=== PATIENT | female | born 1995 | race Caucasian/White ===

== ENCOUNTER 2020-03-17 06:43 | Emergency (ER) | payer OTHER ==
[~2020-03-17] VITALS: Ht 165.1 cm; Wt 90.4 kg
[2020-03-17] MEDS ORDERED: ACETAMINOPHEN 325 MG TAB PO ONE (07:00)
[2020-03-17] MEDS ORDERED: IBUPROFEN 600MG TAB PO ONE (07:00)
[2020-03-17 07:58] VITALS: BP 129/70
--- NOTE | 2020-03-17 08:08 | REP ---
INDICATION: right pain COMPARISON: None. TECHNIQUE: Internal rotation, external rotation, and Y view. FINDINGS: No acute fracture or dislocation. The acromioclavicular and glenohumeral joints are intact. No periarticular calcifications or degenerative changes are appreciated. Sub acromial space is normal. Surrounding soft tissues are unremarkable. IMPRESSION: Normal right shoulder radiographs. <Electronically signed by Kobe Plata > 03/17/20 [id number]
== END 2020-03-17 08:04 | disposition home or self-care (01) ==
LOC: M ED 06:43
DX: M75.51 Bursitis of right shoulder (principal)

== ENCOUNTER 2021-02-10 22:17 | Emergency (ER) | payer OTHER ==
[~2021-02-10] VITALS: Ht 165.1 cm; Wt 88.6 kg
[2021-02-10 22:17] VITALS: BP 133/77
--- OUTSIDE RECORDS SUMMARY | 2021-02-10 22:22 | CCD ---
Author Author [facility] Organization [facility] Address Unknown Phone Unavailable Care Team Providers Care Associate Professor Of Economics Name Role Phone Maring, James PA Unavailable Unavailable Maring, James PA Unavailable Unavailable Maring, James PA Unavailable Unavailable Maring, James PA Unavailable Unavailable Maring, James PA Unavailable Unavailable Maring, James PA Unavailable Unavailable Maring, James PA Unavailable Unavailable Maring, James PA Unavailable Unavailable Maring, James PA Unavailable Unavailable Maring, James PA Unavailable Unavailable Maring, James PA Unavailable Unavailable Maring, James PA Unavailable Unavailable Maring, James PA Unavailable Unavailable Maring, James PA Unavailable Unavailable Maring, James PA Unavailable Unavailable Maring, James PA Unavailable Unavailable Carlos Perez MD Unavailable Unavailable Re-disclosure Warning The records that you are about to access may contain information from federally-assisted alcohol or drug abuse programs. If such information is present, then the following federally mandated warning applies: This information has been disclosed to you from records protected by federal confidentiality rules (42 CFR part 2). The federal rules prohibit you from making any further disclosure of this information unless further disclosure is expressly permitted by the written consent of the person to whom it pertains or as otherwise permitted by 42 CFR part 2. A general authorization for the release of medical or other information is NOT sufficient for this purpose. The Federal rules restrict any use of the information to criminally investigate or prosecute any alcohol or drug abuse patient.The records that you are about to access may contain highly sensitive health information, the redisclosure of which is protected by Article 27-F of the [facility] Public Health law. If you continue you may have access to information: Regarding HIV / AIDS; Provided by facilities licensed or operated by the [facility] Office of Mental Health; or Provided by the [facility] Office for People With Developmental Disabilities. If such information is present, then the following [facility] mandated warning applies: This information has been disclosed to you from confidential records which are protected by state law. State law prohibits you from making any further disclosure of this information without the specific written consent of the person to whom it pertains, or as otherwise permitted by law. Any unauthorized further disclosure in violation of state law may result in a fine or fpc sentence or both. A general authorization for the release of medical or other information is NOT sufficient authorization for further disc losure. Allergies and Adverse Reactions Type Description Substance Reaction Status Data Source(s ) Drug allergy No Known Drug Allergies No Known Drug Allergies [facility] Family History Family Member Name Family Member Gender Family Member Status Date o f Status Description Data Source(s) Unknown Condition [facility] Encounters Encounter Providers Location Date Indications Data Source(s ) Outpatient Attender: James HU 11/12/19 06:18:50 PM EDT - 11/11/2020 06:39:01 PM EDT [facility] ([facility] ) Outpatient Attender: Alexis Perez MD 04/23/2020 04:58: 00 PM [facility] N94.89 [facility] N94.89 Outpatient Attender: Alexis Perez MD 10:57:00 AM EST - 04[facility]23[facility]ine Date Status Description Data Source(s) COVID-19 VACCINE Moderna 10/07/2020 12:00:00 AM EDT completed [facility] Vaccine Series Complete: YESThis Data wa s Submitted to [facility] Via [employer]. COVID-19 VACCINE Moderna 09/02/2020 12:00:00 AM EDT completed [facility] Vaccine Series Complete: NOThis Data was Submitted to [facility] Via [employer]. Medications Medication Brand Name Start Date Product Form Dose Route Admi nistrative Instructions Pharmacy Instructions Status Indications Reaction Description Data Source(s) Metronidazole 500 MG Oral Tablet Metronidazole (Flagyl ) 500 mg tablet Metronidazole (Flagyl) 500 mg tablet 04/23/2020 11:59:54 AM EST 500 MG active [facility] Phentermine Hydrochloride 37.5 MG Oral Capsule Phentermine 04/23/2020 11:13:30 AM EST 37.5 MG completed [facility] Insurance Providers Payer name Policy type / Coverage type Policy ID Covered democrat ID Covered democrat's relationship to garnica Policy Garnica Plan Information Family Health Plan / [id number] Self [id number] [facility] [id number] SP [id number] Problems, Conditions, and Diagnoses No Information Surgeries/Procedures No Information Results ID Date Data Source [id number] 04/25/2020 12:31:00 PM EST [facility] Name Value Range Interpretation Code Description Data Lakshmi rce(s) Supporting Document(s) Trichomonas DNA Probe NOT DETECTED NOT DETECTED [facility] Gardnerella DNA Probe NOT DETECTED NOT DETECTED [facility] Sheridan species DNA Probe NOT DETECTED NOT DETECTED [facility] THIS TEST WAS PERFORMED AT:[address] [id number] MERATI,MD ID Date Data Source [id number] 04/23/2020 11:06:00 AM EST [facility] Patient Name: Ronda Razo : 1995 Sex: F Pt Unit #: [id number] Location: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 PT STATES THAT THE LAST 2 WEEKS SHE HAS NOTICED CLEAR WHITE VAGINAL D/C THAT AT TIMES CAN SOAK HER PANTIES. SHE STATES THAT SHE IS VERY EMBARRASSED ABOUT THIS AND FEELS THAT SHE HAS A STRONG ODER. SHE DID TRY A OTC MONISTAT BUT LITTLE RELIEF. SHE HAS PAIN WITH INTERCOURSE THAT IS "INTENSE AND VERY PAINFUL" TO HER. SHE STATES THAT SHE FEELS VERY NERVOUS TO HAVE SEX WITH KNOWING THAT SHE MAY FEEL THIS PAIN. SHE HAS NO HX OF STD 'S OR ABN PAP. HER HUSBNAD HAS HAD A VASECTOMY. SHE HAS TRIED THERAPY AND STATES THE THERAPIST WAS NOT HELPFUL. SHE HAS HAD DECREASED LIBIDO NOW FOR A "LONG TIME". PT DOES HAD HX OF THYROID DISEASE IN HER FAMILY MOM AND MAT GM. SHE HAS NOT SEEN DRAWER MAKER FOR CAREIN " 5 YEARS". PT STATES THAT SHE HAS NOT TRIED PT FOR THIS PAIN OR SEEN A MD FOR THIS. SHE IS TAKING NOW X 1 WEEK PHENTERMINE TO HELP HER WITH WT LOSS. Loom Setter Fourdrinier Required: No Is patient in pain?: No Allergies No Known Drug Allergies Allergy (Unverified 04/23/20 11:13) Is last menstrual period known: Yes Last menstrual period: 04/03/20 Post menopausal: No Patient : No Vision Wearing glasses?: No Fall Risk Gait/Transferring:: Normal Coronavirus Screening Screening Have you traveled outside of [facility] or [facility] in the last 14 days.: No Has patient experienced coronavirus symptoms: No DRAWER MAKER History Menstrual History Hx Age of Menarche: 11 Date of Last Menstrual Period: 04/03/20 Menstrual pattern Cycle length: 28 Duration of menses: 3-5 days Menstrual flow: Normal Sanitary products used: tampons Associated symptoms: breast tenderness and mood swing Intermenstrual bleeding?: No Menstrual regularity: regular Gynecologic pain symptoms: Reports dyspareunia and other (PAIN WITH INTERCOURSE ) Contraception control method: other ( VASECTOMY) Cervical and Vaginal Cytology Ever treated for STI: No STD Screening: No Data to Display Hx Sexually Transmitted Disorders: Yes Sexual History Sexually active: Yes Do you think of yourself as: straight/heterosexual Sexual concerns: Pain with intercourse and Loss of interest History History 2 Number of Living Children Hx # Term Pre gnancies 2 Hx # Pregnancies Hx Total # of Abortions (Spontaneous Elective) Ectopic pregnancies PFSH Medical History 2 para 2 Pelvic pain Problematic vaginal discharge Family History Mother Thyroid disease Grandmother Thyroid disease Social History adopted: No household members: spouse and children housing: house marital status: number of children: 2 sexually active: Yes do you think of yourself as: straight/heterosexual Smoking Status: Never smoker Female Reproductive History Menstrual Age of Menarche: 11 Duration of menses: 3-5 days Date of last menstrual period: 04/03/20 control method: other ( VASECTOMY) Total pregnancies: 2 Full term: 2 Review of Systems Const Reports system reviewed and no additional complaints, except as documented, Denies chills, Denies fever(s) and Denies headache(s) Eyes Denies blurry vision and Denies spots in vision ENT Denies dizziness and Denies headache(s) Card Denies chest pain and Denies palpitations Resp Denies cough and Denies wheezing GI Denies constipation, Denies diarrhea, Denies nausea and Denies vomiting Genitourinary: Reports as per HPI, dyspareunia, vaginal discharge and vaginal odor; Denies nipple discharge or vaginal pruritus Details: Complaining of frequent malodorous discharge. Senses dryness with intercourse. Musc Denies back pain and Denies arthralgias Skin/Breast Denies hirsutism, Denies alopecia, Denies nipple discharge and Denies rash Neuro Denies dizziness and Denies headache(s) Psych Denies anxiety and Denies depression Endo Denies cold intolerance, Denies heat intolerance and Denies palpitations Shyam/Lymph Denies easy bleeding and Denies easy bruising Aller/Immun Denies wheezing Exam Const General: cooperative, healthy appearing, comfortable, no acute distress and well groomed Orientation: alert and oriented x3 HENMT Head: normocephalic and atraumatic Eyes General: appearance normal, both eyes and all related structures Conjunctivae: conjunctivae normal Sclera: sclerae normal Neck Neck: full ROM and trachea midline Resp Effort Inspection: normal respiratory effort, able to speak in complete sentences, no audible wheezes and no cough Cardio Jugular venous pressure: no JVD Rate: regular rate Other: The patient was allowed privacy to drape for an exam, after which the physician returned to the room accompanied by a nursing publisher assistant. The patient was assisted into lithotomy position. A lighted and lubricated speculum was then used to perform a gentle exam. Cervix was multiparous witha large area of ectropion. A moderate amount of physiologic discharge was noted. Vaginal mucosa was pink and rugated. No lesions were visible. Swabs were taken for affirm testing. We also prepared in office wet mount which showed absence of lactobacilli a small number of clue cells no apparent trichomonas and no yeast hyphae. This was all well-tolerated by the patient. [facility] Cervical Spine: cervical ROM normal Thoracic/Lumbar Spine: thoraco-lumbar ROM normal Skin Lesions: no lesions Rashes: no rashes Hair: normal Neuro General: patient alert and patient oriented x3 Cognition: normal cognition Speech: speech normal Gait: normal gait Sensory Exam: no sensory deficits noted Extrem General: normal to inspection, full ROM, no clubbing, cyanosis or edema and normal gait Psych Mental Status: mental status grossly normal Speech and Movement: speech and movement normal Mood: congruent mood Affect: normal affect Attitude: cooperative Thought Process: normal Thought Content: normal Insight: insight good Judgment: judgment good Assessment Plan Assessment Plan (1) Encounter to establish care with new doctor: Code(s): Z76.89 - Persons encountering health services in other specified circumstances Plan - Alexis Perez MD: The patient does have an ectropion which bleeds with touch from a cotton swab. 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 We cannot rule out the presence of yeast vaginosis simultaneously. Affirm culture is pending. We will start an empiric course of Flagyl and await the affirm test before prescribing a chaser of Diflucan. If the patient does not improve under this regimen she can return for further evaluation. Orders Other Medications: New: metronidazole (Flagyl) 500 mg PO BID 14 tabs 1RF Other Orders: Orders: 2 Vaginitis DNA Probe - Affirm Today N94.89 Coding Level of Care Code 56099 Est Pt Limited Comp Exam Expanded Problem Focused Diagnoses Encounter to establish care with new doctor Z76.89 Time Spent (min) 20 Comment >50% counseling <Electronically signed by Alexis Perez MD> 04/23/20 1502 Name Value Range Interpretation Code Description Data Lakshmi rce(s) Supporting Document(s) Procedure Social History Code Duration Value Status Description Data Source(s ) 04/23/2020 11:47:19 AM EST Never smoker completed Never s [facility] Smoking 04/23/2020 11:47:00 AM EST Never smoker completed Never s [facility]
--- OUTSIDE RECORDS SUMMARY | 2021-02-11 01:27 | CCD ---
Author Author [facility] Organization [facility] Address Unknown Phone Unavailable Care Team Providers Care Wood Dowel Machine Operator Name Role Phone Maring, James PA Unavailable Unavailable Maring, James PA Unavailable Unavailable Maring, James PA Unavailable Unavailable Maring, James PA Unavailable Unavailable Maring, James PA Unavailable Unavailable Maring, James PA Unavailable Unavailable Maring, James PA Unavailable Unavailable Maring, James PA Unavailable Unavailable Maring, James PA Unavailable Unavailable Maring, Ajmes PA Unavailable Unavailable Maring, James PA Unavailable [...] is protected by Article 27-F of the [facility] Public Health law. If you continue you may have access to information: Regarding HIV / AIDS; Provided by facilities licensed or operated by the [facility] Office of Mental Health; or Provided by the [facility] Office for People With Developmental Disabilities. If such information is present, then the following [facility] mandated warning applies: This information has been [...] law may result in a fine or penitentiary sentence or both. A general authorization for the release of medical or other information is NOT sufficient authorization for further disc losure. Allergies and Adverse Reactions Type Description Substance Reaction Status Data Source(s ) Drug allergy No Known Drug Allergies No Known Drug Allergies [facility] Family History Family Member Name Family Member Gender Family Member Status Date o f Status Description Data Source(s) Unknown Condition [facility] Encounters Encounter Providers Location Date Indications Data Source(s ) Outpatient Attender: James HU 11/12/19 06:18:50 PM EDT - 11/11/2020 06:39:01 PM EDT [facility] ([facility] ) Outpatient Attender: Alexis Perez MD 04/23/2020 04:58: 00 PM [facility] N94.89 [facility] N94.89 Outpatient Attender: Alexis Perez MD 10:57:00 AM EST - 04/23/[facility] Vaccine Date Status Description Data Source(s) COVID-19 VACCINE Moderna 10/07/2020 12:00:00 AM EDT completed [facility] Vaccine Series Complete: YESThis Data wa s Submitted to [facility] Via [employer]. COVID-19 VACCINE Moderna 09/02/2020 12:00:00 AM EDT completed [facility] Vaccine Series Complete: NOThis Data was Submitted to [facility] Via [employer]. Medications Medication Brand Name Start Date Product Form Dose Route Admi nistrative Instructions Pharmacy Instructions Status Indications Reaction Description Data Source(s) Metronidazole 500 MG Oral Tablet Metronidazole (Flagyl ) 500 mg tablet Metronidazole (Flagyl) 500 mg tablet 04/23/2020 11:59:54 AM EST 500 MG active [facility] Phentermine Hydrochloride 37.5 MG Oral Capsule Phentermine 04/23/2020 11:13:30 AM EST 37.5 MG completed [facility] Insurance Providers Payer name Policy type / Coverage type Policy ID Covered libertarian ID Covered libertarian's relationship to garnica Policy Garnica Plan Information Family Health Plan / [id number] Self [id number] [facility] [id number] Problems, Conditions, and Diagnoses No Information Surgeries/Procedures No Information Results ID Date Data Source [id number] 04/25/2020 12:31:00 PM EST [facility] Name Value Range Interpretation Code Description Data Lakshmi rce(s) Supporting Document(s) Trichomonas DNA Probe NOT DETECTED NOT DETECTED [facility] Gardnerella DNA Probe NOT DETECTED NOT DETECTED [facility] Sheridan species DNA Probe NOT DETECTED NOT DETECTED [facility] THIS TEST WAS PERFORMED AT:[address] [id number] MERATI,MD ID Date Data Source [id number] 04/23/2020 11:06:00 AM EST [facility] Patient Name: Ronda Hager : 1995 Sex: F Pt Unit #: [id number] [facility] Provider: Visit Date/Time: 04/23/20 Primary Insurance: [facility] Secondary Insurance: Self Pay Intake Vital Signs 04/23/20 11:08 Current Height 5 ft 6 in Current Weight 190 lb Weight Measurement Method Standing Scale BMI 30.7 BP 142/62 Blood Pressure Location Lt radial Position Sitting Respiration 16 Pulse 99 Pulse Strength Normal Pulse Source Pulse Oximeter Temp Source Tympanic Pulse Oximetry (%) 99 Oxygen Delivery Method room air 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 SHE HAS NOT SEEN MICROFABRICATION ENGINEER MANAGER FOR CAREIN " 5 YEARS". PT STATES THAT SHE HAS NOT TRIED PT FOR THIS PAIN OR SEEN A MD FOR THIS. SHE IS TAKING NOW X 1 WEEK PHENTERMINE TO HELP HER WITH WT LOSS. 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 The patient was assisted into lithotomy position. [...] This was all well-tolerated by the patient. [facility] Cervical Spine: cervical ROM normal Thoracic/Lumbar Spine: [...] Today N94.89 Coding Level of Care Code 00719 Est Pt Limited Comp Exam Expanded Problem Focused Diagnoses Encounter to establish care with new doctor Z76.89 Time Spent (min) 20 Comment >50% counseling <Electronically signed by Alexis Perez MD> 04/23/20 1502 Name Value Range Interpretation Code Description Data Lakshmi rce(s) Supporting Document(s) Procedure Social History Code Duration Value Status Description Data Source(s ) 04/23/2020 11:47:19 AM EST Never smoker completed Never s [facility] Smoking 04/23/2020 11:47:00 AM EST Never smoker completed Never s [facility]
== END 2021-02-11 09:12 | disposition left against medical advice (07) ==
LOC: M ED 22:17
DX: Z53.29 Procedure and treatment not carried out because of patient's decision for other reasons (principal)

== ENCOUNTER 2021-03-31 04:52 | Emergency (ER) | payer OTHER ==
[~2021-03-31] VITALS: Ht 167.6 cm; Wt 92.8 kg
[2021-03-31 04:52] VITALS: BP 127/71
== END 2021-03-31 06:26 | disposition left against medical advice (07) ==
LOC: M ED 04:52
DX: Z53.21 Procedure and treatment not carried out due to patient leaving prior to being seen by health care provider (principal)

== ENCOUNTER 2021-06-29 17:43 | Emergency (ER) | payer OTHER ==
[~2021-06-29] VITALS: Ht 167.6 cm; Wt 82.3 kg
[2021-06-29 19:03] LABS: BASO # 0.1 10^3/uL (0.0-0.2); EOS # 0.7 10^3/uL (0.0-0.5); EOS % 9.6 % (0.0-3.0); HEMOGLOBIN 11.8 g/dl (12.0-15.5); LYMPH # 2.5 10^3/uL (1.5-5.0); LYMPH % 34.6 % (24.0-44.0); MEAN CORPUSCULAR HEMOGLOBIN 29.9 pg (27.0-33.0); MEAN CORPUSCULAR HGB CONC 33.7 g/dl (32.0-36.5); MEAN CORPUSCULAR VOLUME 88.6 fl (80.0-96.0); MONO # 0.5 10^3/uL (0.0-0.8); MONO % 6.6 % (2.0-8.0); NEUTROPHILS # 3.4 10^3/uL (1.5-8.5); NEUTROPHILS % 47.9 % (36.0-66.0); PLATELET COUNT, AUTOMATED 264 10^3/uL (150-450); RED BLOOD COUNT 3.95 10^6/uL (4.00-5.40); WHITE BLOOD COUNT 7.1 10^3/uL (4.0-10.0)
[2021-06-29 19:33] LABS: HCG, SERUM QUALITATIVE NEGATIVE (NEGATIVE)
[2021-06-29 19:41] LABS: ALT/SGPT 15 U/L (12-78); BILIRUBIN,DIRECT 0.1 MG/DL (0.0-0.2); BILIRUBIN,TOTAL 0.4 MG/DL (0.2-1.0); BLOOD UREA NITROGEN 16 MG/DL (7-18); CALCIUM LEVEL 9.2 MG/DL (8.5-10.1); CARBON DIOXIDE LEVEL 27 MEQ/L (21-32); CHLORIDE LEVEL 113 MEQ/L (98-107); FREE THYROXINE INDEX 2.9 % (1.3-4.8); GLOMERULAR FILTRATION RATE > 60.0 (>60); GLUCOSE, FASTING 93 MG/DL (70-100); POTASSIUM SERUM 4.2 MEQ/L (3.5-5.1); SODIUM LEVEL 143 MEQ/L (136-145); T UPTAKE 33 % (30-39); THYROID STIMULATING HORMONE 0.542 uIU/ML (0.358-3.740); THYROXINE (T4) 8.7 UG/DL (4.5-12.0); TOTAL PROTEIN 7.8 GM/DL (6.4-8.2)
[2021-06-29 20:20] VITALS: BP 116/66
[2021-06-29 20:21] LABS: ERYTHROCYTE SEDIMENTATION RATE 23 mm/hr (0-20)
[2021-07-01 15:08] LABS: ANTINUCLEAR ANTIBODIES DIRECT Negative (Negative); Lyme Disease IgG/IgM Antibodie <0.91 ISR (0.00-0.90); Lyme Disease IgM Ab Quantitati <0.80 index (0.00-0.79)
== END 2021-06-29 20:22 | disposition home or self-care (01) ==
LOC: M ED 17:43
DX: M25.50 Pain in unspecified joint (principal); R76.0 Raised antibody titer

== ENCOUNTER → 2021-09-22 | Outpatient (REF) | payer OTHER ==
[2021-09-22 16:53] LABS: BASO # 0.1 10^3/uL (0.0-0.2); BASO % 0.6 % (0.0-1.0); EOS # 0.3 10^3/uL (0.0-0.5); EOS % 3.3 % (0.0-3.0); HEMATOCRIT 38.4 % (36.0-47.0); HEMOGLOBIN 12.9 g/dl (12.0-15.5); LYMPH # 2.7 10^3/uL (1.5-5.0); LYMPH % 32.3 % (24.0-44.0); MEAN CORPUSCULAR HEMOGLOBIN 29.9 pg (27.0-33.0); MEAN CORPUSCULAR HGB CONC 33.6 g/dl (32.0-36.5); MEAN CORPUSCULAR VOLUME 88.9 fl (80.0-96.0); MONO # 0.3 10^3/uL (0.0-0.8); MONO % 3.8 % (2.0-8.0); NEUTROPHILS % 59.9 % (36.0-66.0); PLATELET COUNT, AUTOMATED 303 10^3/uL (150-450); RED BLOOD COUNT 4.32 10^6/uL (4.00-5.40); WHITE BLOOD COUNT 8.4 10^3/uL (4.0-10.0)
[2021-09-22 16:59] LABS: APPEARANCE, URINE CLEAR (CLEAR); BACTERIA, URINE AUTO NEGATIVE (NEGATIVE); BILIRUBIN, URINE AUTO NEGATIVE (NEGATIVE); BLOOD, URINE BLOOD NEGATIVE (NEGATIVE); COLOR, URINE YELLOW (YELLOW); GLUCOSE, URINE (UA) AUTO NEGATIVE (NEGATIVE); KETONE, URINE AUTO NEGATIVE (NEGATIVE); LEUKOCYTE ESTERASE, URINE AUTO NEGATIVE (NEGATIVE); NITRITE, URINE AUTO NEGATIVE (NEGATIVE); PROTEIN, URINE AUTO NEGATIVE (NEGATIVE); RBC, URINE AUTO 1 /HPF (0-3); SQUAMOUS EPITHELIAL CELL UR AU 2 /HPF (0-6); UROBILINOGEN, URINE AUTO 0.2 mg/dL (0.0-2.0); WBC, URINE AUTO 1 /HPF (0-3)
[2021-09-22 17:25] LABS: ALBUMIN 4.1 GM/DL (3.2-5.2); ALT/SGPT 16 U/L (12-78); BILIRUBIN,DIRECT 0.2 MG/DL (0.0-0.2); BILIRUBIN,TOTAL 0.8 MG/DL (0.2-1.0); BLOOD UREA NITROGEN 11 MG/DL (7-18); CALCIUM LEVEL 9.8 MG/DL (8.5-10.1); CARBON DIOXIDE LEVEL 26 MEQ/L (21-32); CHLORIDE LEVEL 107 MEQ/L (98-107); COMPLEMENT C3 106 MG/DL (90-180); COMPLEMENT C4 39 MG/DL (10-40); CREATININE FOR GFR 0.88 MG/DL (0.55-1.30); CREATININE,RANDOM URINE 96.4 MG/DL; GLOMERULAR FILTRATION RATE > 60.0 (>60); GLUCOSE, FASTING 83 MG/DL (70-100); IRON (FE) 92 UG/DL (50-170); MAGNESIUM LEVEL 2.1 MG/DL (1.8-2.4); PHOSPHORUS LEVEL 3.6 MG/DL (2.5-4.9); POTASSIUM SERUM 3.8 MEQ/L (3.5-5.1); SODIUM LEVEL 139 MEQ/L (136-145); TOTAL PROTEIN 7.4 GM/DL (6.4-8.2); TOTAL PROTEIN,RANDOM URINE 6.7 MG/DL (0.0-12.0)
[2021-09-22 17:48] LABS: TOTAL 25(OH) VITAMIN D 18.5 NG/ML (30.0-100.0)
[2021-09-22 17:51] LABS: HEPATITIS B SURFACE ANTIBODY NEGATIVE (POSITIVE); VITAMIN B12 LEVEL 375 PG/ML (247-911)
[2021-09-22 18:00] LABS: ERYTHROCYTE SEDIMENTATION RATE 17 mm/hr (0-20); HEPATITIS B SURFACE ANTIGEN NEGATIVE (NEGATIVE)
[2021-09-22 18:28] LABS: HEPATITIS C VIRUS ABY INDEX 0.1 INDEX (<0.8)
[2021-09-24 10:10] LABS: DRVV SCREEN 38.6 SEC
[2021-09-24 15:08] LABS: COMPLEMENT TOTAL (CH50) > 60 U/mL (>41); HEPATITIS B CORE ANTIBODY IGG Negative (Negative)
== END ==
LOC: M SFHCRHEU 15:18
PROVIDERS: ATTEND Internal Medicine
DX: M06.4 Inflammatory polyarthropathy (principal)
CPT/HCPCS: 80048; 80076; 81001; 82306; 82550; 82570; 82607; 83540; 83735; 84100; 84156; 85025; 85652; 85730; 86140; 86160; 86162; 86480; 86704; 86706; 86803; 87340; G0463

== ENCOUNTER → 2021-10-29 | Outpatient (CLI) | payer OTHER | LOC: M PLAIMG 13:17 | PROVIDERS: ATTEND Internal Medicine | DX: M06.4 Inflammatory polyarthropathy (principal) ==

== ENCOUNTER → 2022-02-11 | Outpatient (REF) | payer OTHER ==
[2022-02-11 12:01] LABS: BASO # 0.1 10^3/uL (0.0-0.2); BASO % 1.4 % (0.0-1.0); EOS # 0.5 10^3/uL (0.0-0.5); EOS % 7.6 % (0.0-3.0); HEMATOCRIT 34.4 % (36.0-47.0); HEMOGLOBIN 11.4 g/dl (12.0-15.5); LYMPH # 2.2 10^3/uL (1.5-5.0); LYMPH % 37.2 % (24.0-44.0); MEAN CORPUSCULAR HEMOGLOBIN 30.2 pg (27.0-33.0); MEAN CORPUSCULAR HGB CONC 33.1 g/dl (32.0-36.5); MONO # 0.3 10^3/uL (0.0-0.8); MONO % 5.8 % (2.0-8.0); NEUTROPHILS # 2.8 10^3/uL (1.5-8.5); NEUTROPHILS % 47.8 % (36.0-66.0); PLATELET COUNT, AUTOMATED 284 10^3/uL (150-450); RED BLOOD COUNT 3.78 10^6/uL (4.00-5.40); WHITE BLOOD COUNT 5.9 10^3/uL (4.0-10.0)
[2022-02-11 12:25] LABS: ALT/SGPT 20 U/L (7.0-40); BILIRUBIN,DIRECT 0.1 MG/DL (<0.4); BILIRUBIN,TOTAL 0.6 MG/DL (0.3-1.2); BLOOD UREA NITROGEN 14 MG/DL (9-23); CALCIUM LEVEL 9.6 MG/DL (8.5-10.1); CARBON DIOXIDE LEVEL 24 MMOL/L (20-31); CHLORIDE LEVEL 106 MMOL/L (98-107); CREATININE FOR GFR 0.94 MG/DL (0.55-1.30); GLOMERULAR FILTRATION RATE > 60.0 (>60); GLUCOSE, FASTING 85 MG/DL (60-100); POTASSIUM SERUM 4.3 MMOL/L (3.5-5.1); SODIUM LEVEL 140 MMOL/L (136-145); TOTAL PROTEIN 6.7 G/DL (5.7-8.2)
[2022-02-11 12:33] LABS: ERYTHROCYTE SEDIMENTATION RATE 17 mm/hr (0-20)
== END ==
LOC: M SFHCRHEU 07:20
PROVIDERS: ATTEND Internal Medicine
DX: M05.79 Rheumatoid arthritis with rheumatoid factor of multiple sites without organ or systems involvement (principal)

== ENCOUNTER → 2022-02-12 | Outpatient (REF) | payer OTHER ==
[2022-02-12 20:05] LABS: FERRITIN 19.5 NG/ML (7.3-270.7); PERCENT SATURATION 13.7 % (13.2-45.0); TOTAL 25(OH) VITAMIN D 48.6 NG/ML (20.0-100.0)
== END ==
LOC: M SFHCRHEU 12:02
PROVIDERS: ATTEND Internal Medicine
DX: E55.9 Vitamin D deficiency, unspecified (principal); D64.89 Other specified anemias